=== PATIENT | male | born 1990 | race Caucasian/White ===

== ENCOUNTER → 2019-10-18 08:49 | Outpatient (CLI) | payer MEDICAID, SELFPAY ==
--- NOTE | 2019-10-18 08:58 | CA_ITS ---
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: Jodie Moore RVT Ht: 6 ft 1 in Wt: 235lbs BSA: 2.30 BP: 136/72 mmHg Indications: BHAGAT,FATIGUE,HTZ Echo Enhancing Agent Indication: Rule out Shunt Agent(s) / Amount(s) Used: Agitated Saline 10 cc Comments: PROBABLE + BUBBLE STUDY 2D Dimensions LVOT 2.17 cm (M/F) 1.5-2.5 M-Mode Dimensions RVDd 2.03 cm (0.9-2.6) LVDd 4.39 cm (3.5-5.7) LVDs 1.89 cm (3.5-5.7) IVSd 1.21 cm (0.6-1.1) PWd 0.93 cm (0.6-1.1) EF (Teich) 87.40% FS 56.90% EDV (Teich) 87.20 mL ESV (Teich) 11.00 mL LV Diastology E/A Ratio 1.67 Mitral Valve MV A Velocity 41.00 (40-130 cm/s) Left Ventricle Left atrium is normal size, left ventricle is normal size, there is no concentric left ventricular hypertrophy, visually estimated ejection fraction 55% with no regional wall motion abnormality, diastolic parameters are within normal range. Right Ventricle Right atrium right ventricular normal size and contractility. Atria Intra-atrial septum is intact, the agitated saline contrast study shows presence of agitated contrast in the left ventricle, this is study is inconclusive for intracardiac shunt, if clinically indicated a transesophageal echocardiogram is recommended. Aortic Valve Aortic valve is grossly normal, there is no aortic stenosis aortic insufficiency. Mitral Valve Mitral valve is grossly normal, there is mild mitral regurgitation. Tricuspid Valve Tricuspid valve is grossly normal, there is mild tricuspid regurgitation. Tricuspid regurgitation jet velocity is inadequate for calculation of the right ventricular systolic pressure. Pulmonic Valve Pulmonic valve is poorly visualized. Great Vessels Aortic root is normal size. Pericardium No significant pericardial effusion noted. Conclusion 1. Normal left ventricular size, preserved left ventricular systolic function, visually estimated ejection fraction 55% with no regional wall motion abnormality, diastolic parameters are within normal range. 2. Interatrial septum is intact, there is no obvious flow across the interatrial septum, however agitated saline contrast study shows presence of saline contrast in the left ventricle during the acquisition of this study, this is study is inconclusive for presence of intracardiac shunt, if clinically indicated transesophageal echocardiogram is recommended. 3. No significant pericardial effusion noted. Electronically signed by : Luis Ayon, 10/18/2019 11:20:10
--- NOTE | 2019-10-18 10:02 | ECG_ITS ---
APPROVED REPORT Exam: Resting ECG HR:60 bpm ECG Measurements Heart Rate 60 AXES AR 178 P 29 QRSd 88 QRS 48 QT 404 T 42 QTc 404 <Conclusion> Normal sinus rhythm with sinus arrhythmia Normal ECG Electronically signed by : Ernesto Cárdenas, 10/18/2019 17:54:52
[2019-10-18 10:36] LABS: Basophils # 0.1 K/mm3 (0-0.2); Eosinophils # 0.3 K/mm3 (0.0-0.4); Eosinophils % 5.3 % (0.1-12.0); Hematocrit 42.2 % (42.0-52.0); Lymphocytes # 1.8 K/mm3 (0.7-4.5); Lymphocytes % 29.9 % (10-50); Mean Corpuscular HGB Conc 33.1 g/dL (31.8-35.4); Mean Corpuscular Hemoglobin 31.2 pg (27.0-31.2); Mean Corpuscular Volume 94.1 fl (80-94); Mean Platelet Volume 7.9 fl (7.4-10.4); Monocytes # 0.4 K/mm3 (0.1-1.0); Monocytes % 5.9 % (1.7-9.3); Neutrophils # 3.5 K/mm3 (1.8-7.8); Neutrophils % 57.9 % (37.0-80.0); Platelet Count 252 K/mm3 (142-424); Red Blood Count 4.49 M/mm3 (4.60-6.20); Red Cell Distribution Width 13.2 % (11.5-17.5); White Blood Count 6.1 K/mm3 (4.8-10.8)
[2019-10-18 12:22] LABS: Chloride 99 mmol/L (98-107); Potassium 4.3 mmoL/L (3.5-5.1); Sodium 140 mmol/L (136-145)
[2019-10-18 12:25] LABS: Alanine Aminotransferase 155 U/L (12-78); Albumin Level 4.4 g/dl (3.5-5.0); Albumin/Globulin Ratio 1.5 (1.1-1.8); Alkaline Phosphatase 88 U/L (38-126); Anion Gap 17.3 mEq/L (5-15); Aspartate Amino Transferase 81 U/L (17-59); Bilirubin,Total 0.4 mg/dl (0.2-1.3); Blood Urea Nitrogen 13 mg/dl (9-20); Calcium 9.9 mg/dl (8.4-10.2); Carbon Dioxide 28 mmol/L (22.0-30.0); Estimated Glomerular Filt Rate 115 ml/min (>60); GFR (African American) 139 ML/MIN (>60); Globulin 2.9 g/dL (1.3-3.2); Glucose 106 mg/dl (74-100); Total Protein,Serum 7.3 g/dl (6.3-8.2)
== END ==
PROVIDERS: PCP Internal Medicine; Visit Provider Internal Medicine
DX: R06.09 Other forms of dyspnea (principal); R53.83 Other fatigue
CPT/HCPCS: 80053; 84443; 85025; 93005; 93306

== ENCOUNTER 2019-11-01 12:16 | Day surgery (SDC) | payer MEDICAID, SELFPAY ==
--- NOTE | 2019-11-01 12:24 | CA_ITS ---
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 Type of Sedation : Conscious Sedation Transesophageal probe was inserted and advanced into esophagus without difficulty by Dr. Lex Lopez. The RADHA was performed without complications. Throughout the procedure, the blood pressure, pulse oximetry, cardiac rhythm, and rate were monitored. The patient tolerated the procedure without adverse effects. Recovery from conscious sedation was uneventful and vital signs were stable. Left Ventricle Left ventricle is normal size and function ejection fraction 55% with no regional wall motion abnormalities in the obtained views. Right Ventricle Right ventricle is normal size and contractility. Atria Left atrium is normal size, left atrial appendage free of thrombus. Right atrium is normal size. Intra-atrial septum is intact, there is no flow across the interatrial septum, agitated saline contrast study fails to identify intracardiac shunt. Aortic Valve Aortic valve is structurally normal, there is no aortic stenosis or aortic insufficiency. Mitral Valve Mitral valve is grossly normal, there is trace mitral regurgitation. Tricuspid Valve Tricuspid valve is grossly normal there is no tricuspid regurgitation. Pulmonic Valve Pulmonic valve is grossly normal. Great Vessels Aortic root is normal size, ascending aorta and descending thoracic aorta is normal Pericardium No significant pericardial effusion noted. Conclusion 1. Normal left ventricular size preserved left ventricular systolic function, visually estimated ejection fraction 55% with no regional wall motion abnormality. 2. Intact interatrial septum, there is no flow across the interatrial septum, agitated saline contrast reveals no intracardiac shunt. 3. No significant pericardial effusion noted. Electronically signed by : Luis Ayon, 11/19/2019 09:12:44
[2019-11-01 12:26] VITALS: BMI 30.9
[2019-11-01 12:37] VITALS: BP 167/88; PULSE 90; RESP 18; TEMP 37.1; O2SAT 96
[2019-11-01 12:51] LABS: Basophils # 0.2 K/mm3 (0-0.2); Basophils % 2.6 % (0.1-2.0); Eosinophils # 0.2 K/mm3 (0.0-0.4); Eosinophils % 2.7 % (0.1-12.0); Hematocrit 46.2 % (42.0-52.0); Hemoglobin 15.9 g/dL (14.1-18.0); Lymphocytes # 1.8 K/mm3 (0.7-4.5); Lymphocytes % 25.8 % (10-50); Mean Corpuscular HGB Conc 34.4 g/dL (31.8-35.4); Mean Corpuscular Hemoglobin 31.1 pg (27.0-31.2); Mean Corpuscular Volume 90.4 fl (80-94); Mean Platelet Volume 8.2 fl (7.4-10.4); Monocytes # 0.5 K/mm3 (0.1-1.0); Monocytes % 6.8 % (1.7-9.3); Neutrophils # 4.4 K/mm3 (1.8-7.8); Platelet Count 337 K/mm3 (142-424); Red Cell Distribution Width 13.1 % (11.5-17.5); White Blood Count 7.1 K/mm3 (4.8-10.8)
[2019-11-01 12:53] LABS: Chloride 98 mmol/L (98-107)
[2019-11-01 12:54] LABS: Potassium 3.9 mmoL/L (3.5-5.1); Sodium 140 mmol/L (136-145)
[2019-11-01 12:56] LABS: Blood Urea Nitrogen 10 mg/dl (9-20); Creatinine Clearance Estimated 182 mL/min (50-200); Estimated Glomerular Filt Rate 100 ml/min (>60); GFR (African American) 121 ML/MIN (>60)
[2019-11-01 12:57] LABS: Anion Gap 17.9 mEq/L (5-15); Calcium 10.3 mg/dl (8.4-10.2); Carbon Dioxide 28 mmol/L (22.0-30.0); Glucose 107 mg/dl (74-100)
[2019-11-01 13:00] VITALS: BP 147/93; PULSE 90; RESP 18; O2SAT 94
[2019-11-01 13:15] VITALS: BP 121/80; PULSE 101; RESP 18; O2SAT 93
[2019-11-01 13:20] VITALS: BP 121/66; PULSE 87; RESP 16; O2SAT 97
[2019-11-01 13:45] VITALS: BP 133/83; PULSE 71; RESP 18; O2SAT 99
[2019-11-01 14:00] VITALS: BP 151/91; PULSE 75; RESP 18; O2SAT 95
--- NOTE | 2019-11-01 14:13 | HMH.ANESCL ---
[facility] Anesthesia Checklist - Structural Data Admitted From: Home Planned Operative Procedure/s: leo Consent for Planned Operative Procedure(s) Verified: Yes - Airway Assessment C-Spine Mobility Assessed: Yes TMJ Mobility Assessed: Yes Dentition: Good Dentition - Neurological Assessment Level of Consciousness: Awake, Alert, Appropriate - Anesthesia Plan Anesthesia Risk discussed: Yes Anesthesia Plan: Verified ASA Class: III Anesthesia Type: MAC [facility] History I have reviewed the patient's past medical history: Yes Medical History: Reports:: Hypertension, Palpitations Denies:: Cancer, Diabetes Mellitus Type 1, Diabetes Mellitus Type 2, Internal Pacemaker, MRSA, Seizures *Have you ever received a pneumonia vaccine?: No *Have you received a flu vaccine this season?: No Anesthesia experience/problems:: none Other Surgeries: Yes: No Previous Surgery. No: Pacemaker Amputation: No Fractures: No - *Social History Educational Level: Completed GED/General Educational Development Smoking Status: Never smoker Alcohol Intake: current Alcohol Intake Frequency:: holidays/special occasions only Substance Use Type: denies use *Occupational Status:: employed Housing: house *Travel in the last 8 weeks: None Family Hx:: Coronary Artery Disease, Other
== END 2019-11-01 14:23 | disposition home or self-care (01) ==
PROVIDERS: PCP Internal Medicine; Visit Provider Internal Medicine Cardiovascular Disease
DX: R93.1 Abnormal findings on diagnostic imaging of heart and coronary circulation (principal); R00.2 Palpitations; R94.31 Abnormal electrocardiogram [ECG] [EKG]; Z82.49 Family history of ischemic heart disease and other diseases of the circulatory system
CPT/HCPCS: 80048; 85025; 93312; G0399

== ENCOUNTER 2024-06-10 14:26 | Emergency (ER) | payer OTHER, SELFPAY ==
--- NOTE | 2024-06-10 14:28 | ECG_ITS ---
APPROVED REPORT Exam: Resting ECG HR:84 bpm ECG Measurements Heart Rate 84 AXES IA 178 P 41 QRSd 88 QRS 67 QT 346 T 7 QTc 387 Conclusion SINUS RHYTHM NONSPECIFIC T-WAVE ABNORMALITY BORDERLINE ECG UNCONFIRMED REPORT Electronically signed by : ALETA BAKER, 06/11/2024 06:43:23
[2024-06-10 14:35] VITALS: BP 184/106; PULSE 78; RESP 18; TEMP 37; O2SAT 100; BMI 38.0
--- NOTE | 2024-06-10 14:39 | XR_ITS ---
PROCEDURE INFORMATION: Exam: XR Chest Exam date and time: 06/10/2024 2:40 PM Age: 33 years old Clinical indication: Pain; Chest pressure; Additional info: Cp TECHNIQUE: Imaging protocol: Radiologic exam of the chest. Views: 1 view. COMPARISON: No relevant prior studies available. FINDINGS: Lungs: Unremarkable. No consolidation. Pleural spaces: Unremarkable. No pleural effusion. No pneumothorax. Heart/Mediastinum: Unremarkable. No cardiomegaly. Bones/joints: Unremarkable. IMPRESSION: No acute findings.
[2024-06-10] MEDS: ASPIRIN 325MG TABLET 325 MG PO (14:48)
[2024-06-10 14:52] LABS: Basophils # 0.1 K/mm3 (0-0.2); Basophils % 1.2 % (0.1-2.0); Eosinophils # 0.4 K/mm3 (0.0-0.4); Eosinophils % 4.9 % (0.1-12.0); Hematocrit 44.4 % (42.0-52.0); Hemoglobin 15.5 g/dL (14.1-18.0); Lymphocytes % 27.5 % (10-50); Mean Corpuscular Hemoglobin 32.9 pg (27.0-31.2); Mean Corpuscular Volume 93.9 fl (80-94); Mean Platelet Volume 7.7 fl (7.4-10.4); Monocytes # 0.5 K/mm3 (0.1-1.0); Monocytes % 6.1 % (1.7-9.3); Neutrophils # 4.4 K/mm3 (1.8-7.8); Neutrophils % 60.2 % (37.0-80.0); Platelet Count 268 K/mm3 (142-424); Red Blood Count 4.73 M/mm3 (4.60-6.20); Red Cell Distribution Width 13.3 % (11.5-17.5); White Blood Count 7.4 K/mm3 (4.8-10.8)
[2024-06-10 15:00] VITALS: BP 165/96; PULSE 81; RESP 15; O2SAT 98
[2024-06-10 15:11] LABS: Albumin Level 4.6 g/dl (3.5-5.0); Chloride 105 mmol/L (98-107); Potassium 3.8 mmoL/L (3.5-5.1); Sodium 139 mmol/L (136-145)
[2024-06-10 15:14] LABS: Alanine Aminotransferase 84 U/L (12-78); Albumin/Globulin Ratio 1.3 (1.1-1.8); Alkaline Phosphatase 103 U/L (38-126); Anion Gap 12.8 mEq/L (5-15); Aspartate Amino Transferase 91 U/L (17-59); Bilirubin,Total 0.7 mg/dl (0.2-1.3); Blood Urea Nitrogen 13 mg/dl (9-20); Carbon Dioxide 25 mmol/L (22.0-30.0); Creatine Kinase 138 U/L (55-170); Creatinine Clearance Estimated 210 mL/min (50-200); Estimated Glomerular Filt Rate 97 ml/min (>60); GFR (African American) 118 ML/MIN (>60); Globulin 3.6 g/dL (1.3-3.2); Total Protein,Serum 8.2 g/dl (6.3-8.2)
[2024-06-10 15:15] LABS: Calcium 9.7 mg/dl (8.4-10.2); Glucose 106 mg/dl (74-100)
[2024-06-10 15:31] VITALS: BP 148/85; PULSE 80; RESP 18; O2SAT 97
--- NOTE | 2024-06-10 15:46 | ED_ITS ---
Discharge Plan Disposition Patient Disposition: Home, Self-Care Chief Complaint: Shortness of Breath/Dyspnea Prescriptions Prescriptions: No Action Bystolic 5 mg tablet 0.5 mg PO DAILY losartan-hydrochlorothiazide 50-12.5 mg tablet 1 tab PO DAILY Qty: 30 5RF Referrals Follow up/Referrals: Eusebia Contreras APRN [Primary Care Provider] - See instructions Froy Arriaga MD [Staff Physician] - See instructions Activity Restrictions/Add. Instructions Additional Instructions/Restrictions: Call your family doctor to establish care for this visit to the emergency department and schedule follow-up within 48 hours to ensure improvement. If you have any worsening of your condition or any other concerning signs or symptoms, return to the emergency department or your primary care doctor for further evaluation. Call cardiology to be followed up about your resistant hypertension and also talk to cardiology as well as your family doctor about scheduling a formal sleep study to diagnose underlying sleeping disorder, likely MINGO (obstructive sleep apnea) Clinical Impressions Clinical Impression: Hypertension, Shortness of breath Print Language Print Language: Georgian Discharge ED Provider: Satish Perales HPI General Chief Complaint: Shortness of Breath/Dyspnea Stated Complaint: Chest Pain Time Seen by Provider: 06/10/24 14:39 Mode of Arrival: Ambulatory Source of Information: Patient Limitations: No Limitations Description of Symptoms (Recalled from ER Triage Doc. by RN): pt c/o SOA, fatigue and numbness that starts in his L should and radiates distal. pt states last night he had a little bit of chest pain but it has since resolved. History of Present Illness HPI narrative: Please note that above description of symptoms, in this electronic medical record under categorization of recalled from ER triage doctor by RN are reflective of an initial nursing assessment, however, is not reflective of my full history and physical exam that was personally taken and clarified. Consequentially, this preceding description of symptoms, which may include the patient's categorized chief complaint in the EMR, do not reflect my personal clinical impression, and the ultimate description of history of present illness and patient stated complaints should be deferred to this section of the note. Unless stated otherwise or congruent with this section of the note, additional signs, symptoms, or incongruence should be interpreted as inaccurate with my clinical impression. Related Data Home Medications ?Medication ?Instructions ?Recorded ?Confirmed nebivolol 5 mg tablet (Bystolic) 0.5 mg PO DAILY 10/25/19 10/25/19 Previous Rx's ?Medication ?Instructions ?Recorded losartan 50 mg-hydrochlorothiazide 1 tab PO DAILY #30 tabs 10/25/19 12.5 mg tablet Allergies Allergy/AdvReac Type Severity Reaction Status Date / Time No Known Allergies Allergy Verified 10/25/19 10:31 [facility] Disclaimer: The information contained in this section may have been updated after the patient was seen, as this information can be updated by other users. Medical History (Updated 06/10/24 @ 17:24 by Satish Perales MD) Weight gain Abnormal echocardiogram Edema MINGO (obstructive sleep apnea) Restless sleeper Daytime somnolence Family history of heart disease Palpitations Dyspnea Abnormal EKG Social History Smoking Status: Never smoker alcohol intake: current alcohol intake frequency: holidays/special occasions only substance use type: denies use current occupational status: employed Travel in the last 8 weeks: None housing: house current occupational exposures/hazards: Yes caffeine: Yes Other Medical History Have you received the Flu Vaccine for this season: No Have you received the Pneumonia Vaccine: No ROS Obtained: Yes All systems reviewed & no additional complaints except as documented Physical Exam General General appearance: alert Neck Neck exam: Present trachea midline Chest Chest inspection: Present normal inspection and symmetric chest wall rise Respiratory Respiratory exam: Present normal lung sounds bilaterally; Absent respiratory distress, wheezes, stridor, accessory muscle use or prolonged expiratory phase Cardiovascular Cardiovascular exam: Present regular rate, normal rhythm and other (Pulses equal and symmetric in upper and lower extremities) Extremities Exam Extremities exam: Absent edema Neurological Exam Neurological exam: Present alert, oriented X3 and CN II-XII intact Skin Skin exam: Present warm and dry; Absent cyanosis, diaphoresis or pallor HEART Score HEART Score HEART Score assessment performed?: Yes HEART Score: 0 Critical Care Critical Care Time Critical Care Time: No Medical Decision Making Medical Records Medical records reviewed: Yes I reviewed the patient's medical records. Asad Inquiry Pt receiving controlled substance: No Asad was queried for this patient: No Vital Signs Vital Signs: 06/10/24 14:35 06/10/24 15:00 06/10/24 15:31 Temperature 98.6 F Temperature Source Oral Pulse Rate 81 80 Pulse Rate [Left] 78 Respiratory Rate 18 15 18 Blood Pressure 165/96 H 148/85 H Blood Pressure [Right Arm] 184/106 H Blood Pressure Mean 106 Blood Pressure Mean [Right Arm] 132 Blood Pressure Source [Right Arm] Automatic Cuff Blood Pressure Position [Right Arm] Sitting 02 Sat by Pulse Oximetry 100 98 97 Oxygen Delivery Method Room Air Room Air 06/10/24 16:00 Temperature Temperature Source Pulse Rate 73 Pulse Rate [Left] Respiratory Rate 16 Blood Pressure 154/96 H Blood Pressure [Right Arm] Blood Pressure Mean 115 Blood Pressure Mean [Right Arm] Blood Pressure Source [Right Arm] Blood Pressure Position [Right Arm] 02 Sat by Pulse Oximetry 96 Oxygen Delivery Method Lab Data Labs: Lab Results 06/10/24 14:40: WBC 7.4, RBC 4.73, Hgb 15.5, Hct 44.4, MCV 93.9, MCH 32.9 H, MCHC 35.0, RDW 13.3, Plt Count 268, MPV 7.7, Neut % (Auto) 60.2, Lymph % (Auto) 27.5, Rabun % (Auto) 6.1, Eos % (Auto) 4.9, Baso % (Auto) 1.2, Neut # (Auto) 4.4, Lymph # (Auto) 2.0, Rabun # (Auto) 0.5, Eos # (Auto) 0.4, Baso # (Auto) 0.1, PT 10.2, INR 0.90, D-Dimer 0.60 H, Sodium 139, Potassium 3.8, Chloride 105, Carbon Dioxide 25, Anion Gap 12.8, BUN 13, Creatinine 0.90, Estimated Creat Clear 210, Estimated GFR 97, Est GFR ( Amer) 118, Glucose 106 H, Calcium 9.7, Magnesium 2.2, Total Bilirubin 0.7, AST 91 H, ALT 84 H, Alkaline Phosphatase 103, Total Creatine Kinase 138, Troponin I < 0.01, NT-Pro-B Natriuret Pep < 20.0, Total Protein 8.2, Albumin 4.6, Globulin 3.6 H, Albumin/Globulin Ratio 1.3, HIV 1&2 Antibody Rapid Nonreactive 06/10/24 14:40 06/10/24 14:40 Response Orders (Tests/Meds): ED MEDICATIONS Generic Name Dose Route Start Last Admin Trade Name Freq PRN Reason Stop Dose Admin Sodium Chloride 10 ml 06/10/24 14:49 Sodium Chloride 0.9% 10ml Flush Syringe IV 07/10/24 14:48 NEEDED PRN Maintain IV Site Discontinued Medications Generic Name Dose Route Start Last Admin Trade Name Padmini PRN Reason Stop Dose Admin Aspirin 325 mg 06/10/24 14:40 06/10/24 14:48 Aspirin 325mg Tablet PO 06/10/24 14:41 325 mg ONCE ONE Administration ORDERS Category Date Time Status XR chest portable Stat Exams 06/10/24 14:39 Completed CK [Creatine Kinase] Stat Lab 06/10/24 14:40 Completed Complete Blood Count Auto Diff Stat Lab 06/10/24 14:40 Completed Comprehensive Metabolic Panel Stat Lab 06/10/24 14:40 Completed D-Dimer Stat Lab 06/10/24 14:40 Completed HIV (1&2) Antibody Rapid Stat Lab 06/10/24 14:40 Completed Hep C Ab with Reflex to RNA Stat Lab 06/10/24 14:40 Received Magnesium Stat Lab 06/10/24 14:40 Completed NT Pro Brain Natriuretic Pep. Stat Lab 06/10/24 14:40 Completed PT INR [Prothrombin Time INR] Stat Lab 06/10/24 14:40 Completed Troponin I Q3H Lab 06/10/24 17:45 Ordered Troponin I Q3H Lab 06/10/24 20:45 Ordered Troponin I Stat Lab 06/10/24 14:40 Completed MDM Narrative Medical Decision Narrative: 33-year-old male history of obesity, daytime sleepiness presenting with shortness of breath and left upper extremity tingling. States that he started having left upper extremity tingling at work just prior to arrival. Associated shortness of breath. No chest pain, nausea, vomiting, diaphoresis, syncope, or any other concerns. Has not gone away, so came in for further evaluation. History was obtained via conversation with patient. On arrival, patient hemodynamically stable, alert, oriented x4, appropriate, GCS 15, moving all extremities spontaneously, pupils equal and reactive to light. Full physical exam performed and significant for well-appearing male no acute distress. He is obese. Cardiac exam within normal limits lungs are clear bilaterally. Cardiac exam with normal S1-S2, no murmurs gallops rubs. No evidence of JVD. No lower extremity edema. Pulses equal and symmetric in upper and lower extremities. Neurovascular intact in upper and lower extremities. Differential includes hypertensive heart disease, pulmonary hypertension, anxiety, ACS, [place], new CHF, sleep apnea, among others. Patient placed on continuous cardiac monitoring and continuous pulse ox with initial blood pressure 184/106, heart rate 78, saturation 100% on room air. Independent interpretation of EKG shows nonischemic pattern. Sinus rhythm 84 bpm. WV 178, QRS 88, QTc 387. Normal axis. Workup independently interpreted and significant for nonactionable CBC. CMP with nonactionable findings. AST and ALT mildly elevated, likely secondary to fatty liver infiltration. Troponin negative, BNP negative. D-dimer mildly elevated at 0.6, but negative by years criteria. On independent interpretation of imaging, no acute cardiopulmonary airspace disease. Borderline cardiomegaly. See radiology read for full review of final results. Heart score 0. On further conversation, patient states that he has been having difficulty sleeping recently because he has been snoring so much. Patient states that even when he is awake, he will be laying down on the couch or in a chair, having difficulty taking deep breaths while even awake. States that he has also been following with his family doctor, on multiple blood pressure medications at the age of 33 for resistant hypertension. Because of this, excessive daytime somnolence, shortness of breath, I feel this is most claims representative of early pulmonary hypertension with early hypertensive heart disease. This was relayed to patient and he was recommended that he follow-up with cardiology as well as pulmonology. Patient voiced his understanding. On reevaluation, prior to labs having resulted, patient states that he is ready to go, feeling better. Because patient at baseline without signs or symptoms of clinical decompensation, deemed appropriate for discharge. Results were relayed to patient who voiced understanding and were agreeable to outpatient management and follow up. I discussed my clinical impression with patient and answered all questions. At this time, the evidence for any other entities in the differential is insufficient to warrant any further testing or ED observation. This was explained as well. Advisory was given that persistent or worsening symptoms require further evaluation. I confirmed the understanding of this discussion. Psychiatry Resident disclaimer Much of this encounter note is an electronic anvil seating press operator spoken language to printed text. Electronic anvil seating press operator of the spoken language may permit errors. Although I have reviewed the note, some errors may still exist.
[2024-06-10 15:53] LABS: Magnesium 2.2 mg/dl (1.6-2.3)
[2024-06-10 16:00] VITALS: BP 154/96; PULSE 73; RESP 16; O2SAT 96
[2024-06-10 16:04] LABS: NT Pro Brain Natriuretic Pep. < 20.0 pg/mL (0-125)
[2024-06-10 16:09] LABS: HIV (1&2) Antibody Rapid NONREACTIVE (NONREACTIVE)
[2024-06-10 16:10] LABS: Troponin I < 0.01 ng/ml (0.00-0.034)
[2024-06-10 16:15] VITALS: BP 154/96; PULSE 75; RESP 17; O2SAT 97
[2024-06-10 16:19] LABS: Prothrombin Time 10.2 seconds (10.1-12.5)
[2024-06-10 17:30] VITALS: BP 150/92; PULSE 73; RESP 18; TEMP 36.9; O2SAT 98
[2024-06-11 09:16] LABS: HCV Ab Non Reactive (Non Reactive)
--- OUTSIDE RECORDS SUMMARY | 2024-06-11 22:22 | XMS_ITS | Continuity of Care Document ---
Author Organization Vijaya Brantley [facility] Address [address] [place] [address] Assessment No assessment recorded. Plan of Treatment Reminders Order Date Submit Date Provider Last Modified By Organization Details Last Modified Time Details Appointments ULTRASOUN D 30 2023 08:30A M [facility] Not available Not available Not available Lab None recorded. Referral None recorded. Procedures None recorded. Surgeries None recorded. Imaging XR, chest, 2 view 2023 [facility], [address] [place] [address] , [place], [address], 04/18/2024 17:56:42 Medication Orders albuterol sulfate HFA 90 mcg/actua tion aerosol inhaler 2023 024 [facility], [address] [place] [address], [address], 03/28/2024 11:57:30 azithromy nils 250 mg tablet 2023 024 [facility], [address] [place] [address], [address], 05/22/2024 17:24:41 semagluti de (weight loss) 0.25 mg/0.5 mL subcutane ous pen injector 2023 024 [facility], [address] [place] [address], [address], 05/22/2024 17:24:38 Patient TargetsNo targets recorded. Patient Instructions Encounter Date Encounter Id Patient Instructions Last Modified By Organization Details Last Modified Time 03/28/2024 [id number] learning about healthy weight Not available 03/28/2024 18:49:47 body mass index: care instructions Not available 03/28/2024 18:49:47 learning about healthy weight [email or web address] Not available 03/28/2024 18:49:47 body mass index: care instructions Not available 03/28/2024 18:49:47 cough: care instructions [email or web address] Not available 03/28/2024 11:57:27 All questions answered and pt/guardian satisfied with treatment plan. Call with changes RTC or ED if symptoms change or worsen Keep next interval checkup Cont. chronic meds as prescribed Chronic conditions are stable Discussed natural and expected course of this diagnosis and need to alert the office if symptoms do not follow expected course or if any worsens [email or web address] Not available 03/28/2024 18:50:17 Reason for Referral None Reported. Results Created Date Observation Date Name Description Value Unit Range Abnormal Flag Note LastModifiedBy Organization Detail LastModifiedTime 06/10/20 24 06/10/2024 XR, chest , 2 view No observ ation record ed. [address], [place], [address], 06/10/2024 16:55:48 06/11/20 24 06/10/2024 imagi ng/di agnos tic resul t No observ ation record ed. [address], [place], [address], 06/11/2024 16:26:22 Result Notes None recorded. Problems Name Problem SNOMED Code Status Onset Date Resolution Date Notes Provider Name and Address Organization Details Recorded Time Shre luis 33809535 Active 2020 Y[place]JA[place] - [facility] 16:33:28 Suspecte d COVID-19 435864365 Completed 11/04/2020 Removal Reason: Problem added by user [email or web address] from the COVID-19 watch flag Tonya Ch null, [place] - [facility] 1 11:13:30 Fatigue 69331124 Active 2022 Eusebiasena Contreras, [employer] [address], [place], [address] , [place] - [facility] 3 08:28:23 Vitamin D deficien cy 20613294 Active 2022 Eusebia Ben, [employer] [address], [place], [address] , [place] - [facility] 3 11:08:40 Influenz a caused by Influenz a A virus 708070718 Active 2023 Jam Rand PA-C [address], [place], [address] , [place] - [facility] 4 15:14:26 Prediabe lucas 232798678 Active 2023 Antonio Waddell, DO [address], [place], [address] , [place] - [facility] 4 14:21:09 Mixed hyperlip idemia 910213826 Active 2023 Antonio Waddell, DO [address], [place], [address] , [place] - [facility] 4 14:21:22 Liver enzymes level above referenc e range 026071775 Active 2023 Antonio Waddell, DO [address], [place], [address] , [place] [facility] 4 14:22:05 Depressi ve disorder 26467737 Active 2023 Antonio Waddell, DO [address], [place], [address] , [place] [facility] 4 13:31:29 Nausea and vomiting 96816064 Active 2023 Jam Rand PA-C [address], [place], [address] , [place] [facility] 4 16:20:50 Cough 48028861 Active 2023 Jam Rand PA-C [address], [place], [address] , [place] - [facility] 4 11:56:40 Atypical pneumoni a 357690391 Active 2023 Jam Rand PA-C [address], [place], [address] , [facility] - [facility] 4 11:57:42 Obesity 262975569 Active 2023 Jam Rand PA-C [address], [place], [address] , [facility] - [facility] 4 18:48:32 Viral gastroen teritis 909988415 Active 2023 Jam Rand PA-C [address], [place], [address] , [facility] - [facility] 4 17:57:16 Problem Notes None recorded. Procedures Surgical History Date Name Laterality Status Provider Name and Address Organization Details Recorded Time 3 Knee Surgery completed Joy Merlos [facility] 01/31/2024 15:46:12 Knee Surgery completed Delaney [facility] 11/17/2023 13:13:56 procedure on skin completed Delaney [place] - [facility] 11/17/2023 13:14:33 Imaging Results None recorded. Procedure Notes None recorded. Medical Equipment None Reported. Allergies No known drug allergies Medications Name Sig Start Date Stop Date Status Note LastModified by Organization Details LastModified Time losartan 50 mg tablet TAKE 1 TABLET BY MOUTH EVERY DAY 11/08 completed Not Available Not Available Not Available cyclobenz aprine 10 mg tablet TAKE ONE (1) TABLET BY MOUTH THREE TIMES A DAY NEEDED 05/24 completed Not Available Not Available Not Available carvedilo l 6.25 mg tablet TAKE 1 TABLET BY MOUTH TWICE DAILY 09/05 completed Not Available Not Available Not Available azithromy nils 250 mg tablet TAKE TWO (2) TABLETS BY ORAL ROUTE ONCE DAILY FOR ONE (1) DAY THEN ONE (1) TABLET BY ORAL ROUTE ONCE DAILY FOR FOUR (4) DAYS 05/22 completed Not Available Not Available Not Available metoprolo l succinate ER 50 mg tablet,ex tended release 24 hr TAKE ONE (1) TABLET EVERY DAY BY ORAL ROUTE FOR 30 DAYS. active Not Available Not Available No t Available prednison e 20 mg tablet TAKE ONE (1) TABLET TWICE A DAY BY ORAL ROUTE FOR FIVE (5) DAYS. 09/24 completed Not Available Not Available Not Available phentermi ne 37.5 mg tablet TAKE ONE (1) TABLET EVERY DAY BY ORAL ROUTE FOR 30 DAYS. 02/09 completed Not Available Not Available Not Available amlodipin e 5 mg tablet TAKE ONE (1) TABLET BY MOUTH EVERY DAY 09/05 completed Not Available Not Available Not Available ondansetr on 8 mg disintegr ating tablet Place 1 tablet twice a day by translin gual route as needed. active Not Available Not Available No t Available oseltamiv ir 75 mg capsule TAKE ONE (1) CAPSULE TWICE A DAY BY ORAL ROUTE FOR FIVE (5) DAYS. 09/24 completed Not Available Not Available Not Available lisinopri l 10 mg tablet TAKE ONE (1) TABLET EVERY DAY BY ORAL ROUTE FOR 30 DAYS. active Not Available Not Available No t Available metoprolo l succinate ER 25 mg tablet,ex tended release 24 hr TAKE ONE (1) TABLET EVERY DAY BY ORAL ROUTE. active Not Available Not Available No t Available ergocalci ferol (vitamin D2) 1,250 mcg (50,000 unit) capsule TAKE ONE (1) CAPSULE EVERY WEEK BY ORAL ROUTE FOR 90 DAYS. active Not Available Not Available No t Available Anusol-HC 25 mg rectal supposito ry insert 1 supposit ory (25 mg) by rectal route 2 times per day for 2 weeks 06/08 completed Anusol-H C 25 mg rectal supposit ory;Darian rded Status: Recorded on: 03/18/20 14 8:31PM;D iscontin ued Status: Disconti nued on: 06/08/20 15 5:47PM;U ser: [email or web address]; Est. Completi on: 04/01/20 14 Not Available Not Available Not Available methylpre dnisolone 4 mg tablets in a dose pack FOLLOW PACKAGE DIRECTIO NS 05/24 completed Not Available Not Available Not Available albuterol sulfate HFA 90 mcg/actua tion aerosol inhaler INHALE TWO (2) PUFFS EVERY FOUR (4) HOURS BY INHALATI ON ROUTE NEEDED. active Not Available Not Available No t Available losartan 50 mg-hydroc hlorothia zide 12.5 mg tablet 11/06 completed Not Available Not Available Not Available brompheni ramine-ps eudoephed rine-DM 2 mg-30 mg-10 mg/5 mL oral syrup TAKE 10 ML EVERY FOUR (4) HOURS BY ORAL ROUTE NEEDED, FOR COUGH. 09/24 completed Not Available Not Available Not Available ondansetr on 4 mg disintegr ating tablet PLACE ONE (1) TABLET ON TOP OF TONGUE WHERE IT WILL DISSOLVE TWICE DAILY NEEDED active Not Available Not Available No t Available losartan 100 mg tablet TAKE ONE (1) TABLET BY MOUTH EVERY DAY 09/05 completed Not Available Not Available Not Available oxycodone 5 mg tablet TAKE ONE (1) TO TWO (2) TABLETS BY MOUTH EVERY FOUR (4) HOURS NEEDED FOR MAJOR SURGERY/ TRAUMA. 09/24 completed Not Available Not Available Not Available escitalop kiana 10 mg tablet TAKE ONE (1) TABLET EVERY DAY BY ORAL ROUTE FOR 30 DAYS. 12/14 completed Not Available Not Available Not Available escitalop kiana 5 mg tablet Take 1 tablet every day by oral route. active Not Available Not Available No t Available Voltaren one bid 06/08 completed voltaren 75 mg.;Darian rded Status: Recorded on: 01/20/20 15 1:59PM;D iscontin ued Status: Disconti nued on: 06/08/20 15 5:47PM;U ser: [email or web address]; Est. Completi on: 02/09/20 15 Not Available Not Available Not Available Contrave 8 mg-90 mg tablet,ex tended release Take 2 tablets twice a day by oral route for 30 days. 09/24 completed Not Available Not Available Not Available Qelbree 100 mg capsule,e xtended release 12/27 completed Not Available Not Available Not Available semagluti de (weight loss) 0.25 mg/0.5 mL subcutane ous pen injector Inject 0.25 mg every week by subcutan eous route for 28 days. 05/22 completed Not Available Not Available Not Available Vitals Date Recorded Body height Body mass index (BMI) Body weight Heart rate Oxygen saturation Oxygen saturation in Arterial blood by Pulse oximetry Systolic blood pressure Diastolic blood pressure Provider Name and Address Organization Details Last Updated DateTime 4 182.88 cm 34.3 kg/m2 965927. 87 g 88 /min 98 % 98 % 130 mm[Hg] 88 mm[Hg] Joy Merlos [place] - [facility] 4 11:28:05 Social History Question Answer Notes LastModified by Organizat ion Details LastModified Time Tobacco Smoking Status Never Smoker Jodie horvath [place] - [facility] 07/20/2020 16:33:41 What Is Your Level Of Alcohol Consumption? Occasional Information not available 05/24/2021 How Many Times Per Week Do You Consume Alcohol? 1-2 Times Per Week Information not available 11/22/2023 What Is Your Level Of Caffeine Consumption? Moderate Information not available 05/24/2021 How Much Tobacco Do You Chew? 1/day [email or web address] Information not available 11/22/2023 Do You Or Have You Ever Used E-cigarettes Or Vape? Never Used Electronic Cigarettes Information not available 10/16/2020 What Was The Date Of Your Most Recent Tobacco Screening? 12/15/2023 [email or web address] Information not available 12/15/2023 What Is Your Relationship Status? Single Information not available 02/23/2023 Are You Sexually Active? No Information not available 02/23/2023 Do You Or Have You Ever Used Smokeless Tobacco? Currently Chews Tobacco Information not available 10/16/2020 How Much Tobacco Do You Smoke? No Information not available 10/16/2020 Do You Use Any Illicit Or Recreational Drugs? No Information not available 05/24/2021 Has Tobacco Cessation Counseling Been Provided? Yes Information not available 05/24/2021 On What Date Was Tobacco Cessation Counseling Provided? 11/22/2023 Not A Smoker Information not available 11/22/2023 How Many Years Have You Smoked Tobacco? 0 Information not available 10/16/2020 Do You Or Have You Ever Used Any Other Forms Of Tobacco Or Nicotine? No Information not available 05/24/2021 Sex: Male Functional Status None recorded. Mental Status None recorded. Family History Relationship Description Onset Age of this Age Resolved Age Notes LastModified by Organization Details LastModified Time Unspecified Relation Heart disease [email or web address] Not available 2023 15:46:11 Medical History Condition Response Hypertension Y Immunizations Vaccine Type Date Status Provider Name and Address Organization Details Recorded Time Influenza, split virus, quadrivalent, preservative 07/07/2022 cancelled Eusebia Contreras, [employer] [address], [place], [address], [place] - [facility] 07/07/2022 15:36:08 Influenza, split virus, quadrivalent, preservative 09/19/2022 cancelled Eusebia Contreras, [employer] [address], [place], [address], [place] - [facility] 09/19/2022 09:23:05 Hep B, adolescent or pediatric 04/05/2001 completed Crystal Muna null, [place] - [facility] 07/07/2022 15:27:57 Hep B, adolescent or pediatric 05/30/2001 completed Crystal Muna [place], [place] - [facility] 07/07/2022 15:27:57 Hep B, adolescent or pediatric 11/02/2001 completed Crystal Muna null, [place] - [facility] 07/07/2022 15:27:57 Past Encounters Encounter ID Performer Location Encounter Start Date Encounter Closed Date Diagnosis/Indication Diagnosis SNOMED-CT Code Diagnosis ICD10 Code [id number] Jam Rand PA-C [address] [address] 03/28/2024 11:17:20 03/28/2024 11:18:51 Cough 93381508 R05.9 Atypical pneumonia 55374 6009 J18.9 Body mass index 30+ - obesity 054483427 Z68.34 Obesity 607759636 E66.9 Health Concerns Section Related Observation LastModified by Organization Detai ls LastModified Time None Recorded Concern Status LastModified by Organization Details LastModified Time None Recorded Payers Encounter Date Sequence Insurance Name Policy Number Policy Scott Covered Member ID Scott Member ID Guarantor Name 03/28/2024 1 [facility] Noel Russo [id number] Noel Russo Notes Date Note Type Note Provider Name and Address Organization Details Recorded Time 03/28/2024 text/html Patient presents to office with complaints of continuous cough. Patient reports cough has been on going x several months . Patient states feels as though something is stuck in throat at all times. Cough is mostly dry. Reports was present before initiating lisinopril. Coughing is worse when pt is active or hot. Patient denies nausea or vomiting. Patient denies chest pain or shortness of air. Endorses occasional GERD. Reports has been ordering semaglutide offline for weight loss.Pt denies chest pain, difficulty eating or drinking, changes in bathroom habits, syncope/presyncope , or any other concerns. Jam Rand PA-C [facility] [address], [place], [address], [place] - [facility] 03/28/2024 18:50:24
--- OUTSIDE RECORDS SUMMARY | 2024-06-11 22:22 | XMS_ITS | Data Portability ---
Author Organization [facility] Address [address] [place] [address] Assessment No assessment recorded. Plan of Treatment Reminders Order Date Submit Date Provider Last Modified By Organization Details Last Modified Time Details Appointments ULTRASOUN D 30 2023 08:30A M U/S Mfhc Not available Not available Not available Lab glucose, fingersti ck, blood [id number], [address] [place], [address], 11/22/2023 08:21:32 rapid SARS CoV + SARS CoV 2 Ag, QL IA, respirato ry specimen [address], [address] [place], [address], 01/31/2024 16:50:17 rapid strep group A, throat [address], [address] [place], [address], 01/31/2024 16:50:17 rapid SARS CoV + SARS CoV 2 Ag, QL IA, respirato ry specimen 2023 024 [facility], [address] [place], [address], 05/22/2024 18:17:11 rapid strep group A, throat 2023 024 [facility], [address] [place] [address] Rd., [place], [address], 05/22/2024 18:17:02 rapid flu (A+B) 2023 024 [facility], [address] [place] [address] Rd., [place], [address], 05/22/2024 18:16:51 Referral None recorded. Procedures None recorded. Surgeries None recorded. Imaging XR, chest, 2 view 2023 [email or web address] [facility], [address] [place] [address] , [place], [address], 04/18/2024 17:56:42 Medication Orders ondansetr on 4 mg disintegr ating tablet 2023 024 [facility], [address] [place] [address], [address], 01/31/2024 16:20:47 albuterol sulfate HFA 90 mcg/actua tion aerosol inhaler [address], [place], [address], 03/28/2024 11:57:30 azithromy nils 250 mg tablet [address], [address], 05/22/2024 17:24:41 semagluti de (weight loss) 0.25 mg/0.5 mL subcutane ous pen injector 2023 024 [facility], [address] [place] [address], [address], 05/22/2024 17:24:38 ondansetr on 8 mg disintegr ating tablet 2023 024 [facility], [address] [place] [address], [place], [address], 05/22/2024 17:57:36 Patient TargetsNo targets recorded. Patient Instructions Encounter Date Encounter Id Patient Instructions Last Modified By Organization Details Last Modified Time 12/15/2023 [id number] learning about healthy weight Not available 12/15/2023 14:14:26 body mass index: care instructions Not available 12/15/2023 14:14:26 01/31/2024 [id number] nausea and vomiting: care instructions [email or web address] Not available 01/31/2024 16:50:17 All questions answered and pt/guardian satisfied with treatment plan. Call with changes RTC or ED if symptoms change or worsen Keep next interval checkup Cont. chronic meds as prescribed Chronic conditions are stable Discussed natural and expected course of this diagnosis and need to alert the office if symptoms do not follow expected course or if any worsens [email or web address] Not available 01/31/2024 18:14:58 03/28/2024 [id number] learning about healthy weight [email or web address] Not available 03/28/2024 18:49:47 body mass index: care instructions Not available 03/28/2024 18:49:47 learning about healthy weight [email or web address] Not available 03/28/2024 18:49:47 body mass index: care instructions [email or web address] Not available 03/28/2024 18:49:47 cough: care instructions [email or web address] Not available 03/28/2024 11:57:27 All questions answered and pt/guardian satisfied with treatment plan. Call with changes RTC or ED if symptoms change or worsen Keep next interval checkup Cont. chronic meds as prescribed Chronic conditions are stable Discussed natural and expected course of this diagnosis and need to alert the office if symptoms do not follow expected course or if any worsens [email or web address] Not available 03/28/2024 18:50:17 05/22/2024 [id number] nausea and vomiting: care instructions [email or web address] Not available 05/22/2024 17:57:50 All questions answered and pt/guardian satisfied with treatment plan. Call with changes RTC or ED if symptoms change or worsen Keep next interval checkup Cont. chronic meds as prescribed Chronic conditions are stable Discussed natural and expected course of this diagnosis and need to alert the office if symptoms do not follow expected course or if any worsens Not available 05/22/2024 21:46:12 Reason for Referral None Reported. Results Created Date Observation Date Name Description Value Unit Range Abnormal Flag Note LastModifiedBy Organization Detail LastModifiedTime 11/17/19 24 11/18/2023 COMP. METAB OLIC PANEL (14) glucose 139 mg/dL 70-99 above high normal Not Available [facility] ([facility]) [address] [place], [address], 11/18/2023 08:38:09 11/17/19 24 11/18/2023 COMP. METAB OLIC PANEL (14) BUN 10 mg/dL 6-20 Not Available [facility] ([facility]) [address] [place], [address], 11/18/2023 08:38:09 11/17/19 24 11/18/2023 COMP. METAB OLIC PANEL (14) creatinine 0.93 mg/dL 0.76-1 .27 Not Available [facility] ([facility]) [address] [place], [address], 11/18/2023 08:38:09 11/17/19 24 11/18/2023 COMP. METAB OLIC PANEL (14) eGFR 111 mL/mi n/1.7 3 >59 Not Available [facility] ([facility]) [address] [place], [address], 11/18/2023 08:38:09 11/17/19 24 11/18/2023 COMP. METAB OLIC PANEL (14) BUN/creatini ne ratio 11 9-20 Not Available [facility]) [address] [place], [address], 11/18/2023 08:38:09 11/17/19 24 11/18/2023 COMP. METAB OLIC PANEL (14) sodium 141 mmol/ L 134-14 4 Not Available [facility] ([facility]) [address] [place], [address], 11/18/2023 08:38:09 11/17/19 24 11/18/2023 COMP. METAB OLIC PANEL (14) potassium 4.0 mmol/ L 3.5-5. 2 Not Available [facility] ([facility]) [address] [place], [address], 11/18/2023 08:38:09 11/17/19 24 11/18/2023 COMP. METAB OLIC PANEL (14) chloride 102 mmol/ L 96-106 Not Available [facility] ([facility] [address] [facility] [place], [address], 11/18/2023 08:38:09 11/17/19 24 11/18/2023 COMP. METAB OLIC PANEL (14) carbon dioxide, total 20 mmol/ L 20-29 Not Available [facility] ([facility]) [address] [place], [address], 11/18/2023 08:38:09 11/17/19 24 11/18/2023 COMP. METAB OLIC PANEL (14) calcium 10.0 mg/dL 8.7-10 .2 Not Available [facility] ([facility] [address] [facility] [place], [address], 11/18/2023 08:38:09 11/17/19 24 11/18/2023 COMP. METAB OLIC PANEL (14) protein, total 7.8 g/dL 6.0-8. 5 Not Available [facility] ([facility]) [address] [facility] [place], [address], 11/18/2023 08:38:09 11/17/19 24 11/18/2023 COMP. METAB OLIC PANEL (14) albumin 4.6 g/dL 4.1-5. 1 Not Available [facility] ([facility]) [address] [facility] [place], [address], 11/18/2023 08:38:09 11/17/19 24 11/18/2023 COMP. METAB OLIC PANEL (14) globulin, total 3.2 g/dL 1.5-4. 5 Not Available [facility] ([facility]) [address] [facility] [place], [address], 11/18/2023 08:38:09 11/17/19 24 11/18/2023 COMP. METAB OLIC PANEL (14) A/G ratio 1.4 1.2-2. 2 Not Available [facility] ([facility]) [address] [facility] [place], [address], 11/18/2023 08:38:09 11/17/19 24 11/18/2023 COMP. METAB OLIC PANEL (14) bilirubin, total 0.6 mg/dL 0.0-1. 2 Not Available [facility] ([facility]) [address] [facility] [place], [address], 11/18/2023 08:38:09 11/17/19 24 11/18/2023 COMP. METAB OLIC PANEL (14) alkaline phosphatase 97 IU/L 44-121 Not Available [facility] [address] [facility] [place], [address], 11/18/2023 08:38:09 11/17/19 24 11/18/2023 COMP. METAB OLIC PANEL (14) AST (SGOT) 74 IU/L 0-40 above high normal Not Available [facility] ([facility]) [address] [facility] [place], [address], 11/18/2023 08:38:09 11/17/19 24 11/18/2023 COMP. METAB OLIC PANEL (14) ALT (SGPT) 94 IU/L 0-44 above high normal Not Available [facility] ([facility]) [address] [place], [address], 11/18/2023 08:38:09 11/17/19 24 11/18/2023 LIPID PANEL cholesterol, total 187 mg/dL 100-19 9 Not Available [facility] ([facility]) [address] [place], [address], 11/18/2023 08:38:10 11/17/19 24 11/18/2023 LIPID PANEL triglyceride s 245 mg/dL 0-149 above high normal Not Available [facility] ([facility]) [address] [place], [address], 11/18/2023 08:38:10 11/17/19 24 11/18/2023 LIPID PANEL HDL cholesterol 44 mg/dL >39 Not Available [facility]) [address] [place], [address], 11/18/2023 08:38:10 11/17/19 24 11/18/2023 LIPID PANEL VLDL cholesterol zara 42 mg/dL 5-40 above high normal Not Available [facility] ([facility]) [address] [place], [address], 11/18/2023 08:38:10 11/17/19 24 11/18/2023 LIPID PANEL LDL chol calc ([facility]) 101 mg/dL 0-99 above high normal Not Available [facility] (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) [address] [place], [address], 11/18/2023 08:38:10 11/17/19 24 11/18/2023 HCV ANTIB JAMES RFX TO QUANT PCR HCV Ab Non Reacti ve non reacti ve Not Available [facility] ([facility]) [address] [facility], [place], [address], 11/18/2023 08:38:10 11/17/19 24 11/18/2023 HCV ANTIB JAMES RFX TO QUANT PCR interpretati on: Commen t Not infec candice with HCV unles s early or acute infec tion is suspe cted (whic h may be delay ed in an immun ocomp romis ed indiv idual ), or other evide nce exist s to indic ate HCV infec tion. Not Available [facility] ([facility]) [address] [facility], [place], [address], 11/18/2023 08:38:10 11/17/19 24 11/18/2023 HEMOG LOBIN A1C hemoglobin A1C 6.0 % 4.8-5. 6 above high normal Predi abete s: 5.7 - 6.4 Diabe lucas: >6.4 Glyce ross contr ol for adult s with diabe lucas: <7.0 Not Available [facility] ([facility]) [address] [facility], [place], [address], 11/18/2023 08:38:11 11/17/1911/18/2023 VITAM IN D, 25-HY DROXY vitamin D, 25-hydroxy 53.6 NG/mL 30.0-1 00.0 Vitam in D defic iency has been defin ed by the Insti tute of Medic ine and an Endoc rine Socie ty pract ice guide line as a level of serum 25-OH vitam in D less than 20 ng/mL (1,2) . The Endoc rine Socie ty went on to furth er defin e vitam in D insuf ficie ncy as a level betwe en 21 and 29 ng/mL (2). 1. IOM (Inst itute of Medic ine). 2010. Dieta ry refer ence erik es for calci um and D. Lorri neri [place]: The Natio nal [employer] m[employer] . 2. Zahira foster MF, Isidoro ey [place], Bisch off-F errar i TRUONG, et al. Evalu ation , treat ment, and preve ntion of vitam in D defic iency : an Endoc rine Socie ty clini zara pract ice guide line. JCEM. 2010; 96(7) :1911 -30. Not Available [facility] ([facility]) [address] [place], [address], 11/18/2023 08:38:12 11/17/19 24 11/18/2023 TSH RFX ON ABNOR MAL TO FREE T4 TSH 0.433 uIU/m L 0.450- 4.500 below low normal Not Available [facility] ([facility]) [address] [place], [address], 11/18/2023 08:38:13 11/17/19 24 11/18/2023 TSH RFX ON ABNOR MAL TO FREE T4 T4,free (direct) 1.01 NG/dL 0.82-1 .77 Not Available [facility] ([facility]) [address] [place], [address], 11/18/2023 08:38:13 11/17/19 24 11/18/2023 ALBUM IN/CR EAT RATIO , RANDO M UR creatinine, urine 422.7 mg/dL not estab. Not Available [facility] ([facility]) [address] [place], [address], 11/18/2023 08:38:16 11/17/19 24 11/18/2023 ALBUM IN/CR EAT RATIO , RANDO M UR albumin, urine 15.9 ug/mL not estab. Not Available [facility] ([facility]) [address] [place], [address], 11/18/2023 08:38:16 11/17/19 24 11/18/2023 ALBUM IN/CR EAT RATIO , RANDO M UR alb/creat ratio 4 mg/g_ creat 0-29 Aysha l: 0 - 29 Moder ately incre ased: 30 - 300 Sever ricardo incre ased: >300 Not Available [facility] ([facility]) [address], [place], [address], 11/18/2023 08:38:16 11/22/19 24 11/22/2023 gluco se, finge rstic k, blood Blood Glucose: mg/dl 103 Not Available [place] [address] [facility] [address] [place], [address], 11/22/2023 08:07:13 11/22/19 24 11/22/2023 gluco se, finge rstic k, blood Reference Range (60-100) abnorm al Not Available [address] [place], [address], 11/22/2023 08:07:13 01/31/20 24 01/31/2024 rapid strep group A, throa t Strep negati ve Not Available [address] [place], [address], 01/31/2024 16:14:31 01/31/20 24 01/31/2024 rapid strep group A, throa t Culture No Not Available [address] [place], [address], 01/31/2024 16:14:31 01/31/20 24 01/31/2024 rapid SARS CoV + SARS CoV 2 Ag, QL IA, respi rator y speci men SARS CoV antigen Negati ve Not Available [address] [place], [address], 01/31/2024 15:51:32 05/22/20 24 05/22/2024 rapid strep group A, throa t Strep negati ve Not Available [address] [place], [address], 05/22/2024 17:57:48 05/22/20 24 05/22/2024 rapid strep group A, throa t Culture No Not Available [address] [place], [address], 05/22/2024 17:57:48 05/22/20 24 05/22/2024 rapid SARS CoV + SARS CoV 2 Ag, QL IA, respi rator y speci men SARS CoV antigen Negati ve Not Available [address] [place], [address], 05/22/2024 17:57:47 05/22/20 24 05/22/2024 rapid flu (A+B) Flu negati ve Not Available [address] [place], [address], 05/22/2024 17:57:48 05/22/20 24 05/22/2024 rapid flu (A+B) Type Both A & B Not Available [address] [place], [address], 05/22/2024 17:57:48 06/10/20 24 06/10/2024 XR, chest , 2 view No observ ation record ed. [place] [address], [place], [address], 06/10/2024 16:55:48 06/11/20 24 06/10/2024 imagi ng/di agnos tic resul t No observ ation record ed. [address], [place], [address], 06/11/2024 16:26:22 Result Notes None recorded. Problems Name Problem SNOMED Code Status Onset Date Resolution Date Notes Provider Name and Address Organization Details Recorded Time Sher cisse toby 29926249 Active 2020 Jodie Sheppard null, [place] - [facility] 1 16:33:28 Suspecte d COVID-19 029172234 Completed 11/04/2020 Removal Reason: Problem added by user [email or web address] from the COVID-19 watch flag Tonyajonas Ch null, [place] - [facility] 1 11:13:30 Fatigue 12677702 Active 2022 Eusebia Ben, STUDENT FINANCE SPECIALIST [address], [place], [address] , [place] - [facility] 3 08:28:23 Vitamin D deficien cy 56780600 Active 2022 Eusebia Contreras, STUDENT FINANCE SPECIALIST [address], [place], [address] , [place] - [facility] 3 11:08:40 Influenz a caused by Influenz a A virus 838949225 Active 2023 Jam Rand PA-C [address], [place], [address] , [place] - [facility] 4 15:14:26 Prediabe lucas 270249057 Active 2023 Antonio Waddell DO [address], [place], [address] , [place] - [facility] 4 14:21:09 Mixed hyperlip idemia 623553015 Active 2023 Antonio Waddell DO [address], [place], [address] , [place] [facility] 4 14:21:22 Liver enzymes level above referenc e range 122631210 Active 2023 Antonio Waddell DO [address], [place], [address] , [place] [facility] 4 14:22:05 Depressi ve disorder 44346728 Active 2023 Antonio Waddell DO [address], [place], [address] , [place] - [facility] 4 13:31:29 Nausea and vomiting 26238530 Active 2023 Jam Rand PA-C [address], [place], [address] , [place] [facility] 4 16:20:50 Cough 05072243 Active 2023 RONDA GarveyC [address], [place], [address] , [place] [facility] 4 11:56:40 Atypical pneumoni a 305850076 Active 2023 Jam Rand PA-C [address], [place], [address] , [place] [facility] 4 11:57:42 Obesity 154695252 Active 2023 Jam Rand PA-C [address], [place], [address] , [place] - [facility] 4 18:48:32 Viral gastroen teritis 055428524 Active 2023 Jam Rand PA-C [address], [place], [address] , [place] - [facility] 4 17:57:16 Problem Notes None recorded. Procedures Surgical History Date Name Laterality Status Provider Name and Address Organization Details Recorded Time 3 Knee Surgery completed Joy Merlos [place] - [facility] 01/31/2024 15:46:12 Knee Surgery completed Delaney Woodall [place] - [facility] 11/17/2023 13:13:56 procedure on skin completed Delaney Woodall [place] - [facility] 11/17/2023 13:14:33 Imaging Results Imaging Date Name Status [facility] Details LastModified Time 06/10/2024 XR, chest, 2 view completed [address], [place], [address], 06/10/2024 16:55:48 06/10/2024 imaging/diag nostic result active [address], [place], [address], 06/11/2024 16:26:22 Procedure Notes None recorded. Medical Equipment None [...] 15 5:47PM;U ser: [email or web address]; Est. Completi on: 04/01/20 14 Not Available [...] Disconti nued on: 06/08/20 15 5:47PM;U ser: [email or web address]; Est. Completi on: 02/09/20 15 Not Available [...] Available Vitals Date Recorded Body height Body temperature Body mass index (BMI) Body weight Heart rate Oxygen saturation Oxygen saturation in Arterial blood by Pulse oximetry Respiratory rate Systolic blood pressure Diastolic blood pressure Provider Name and Address Organization Details Last Updated DateTime 4 182.88 cm 97.5 [degF] 34.1 kg/m2 192400. 38 g 84 /min 98 % 98 % 18 /min 132 mm[Hg] 86 mm[Hg] Delaney Woodall [place] - [facility] 4 08:02:51 Date Recorded Body height Oxygen saturation Oxygen saturation in Arterial blood by Pulse oximetry Heart rate Body mass index (BMI) Body weight Respiratory rate Systolic blood pressure Diastolic blood pressure Provider Name and Address Organization Details Last Updated DateTime 4 182.88 cm 99 % 99 % 66 /min 33.8 kg/m2 947217. 9 g 16 /min 124 mm[Hg] 70 mm[Hg] Delaney Woodall [place] - [facility] 4 13:46:45 Date Recorded Body height Body mass index (BMI) Body weight Body temperature Heart rate Oxygen saturation Oxygen saturation in Arterial blood by Pulse oximetry Systolic blood pressure Diastolic blood pressure Provider Name and Address Organization Details Last Updated DateTime 4 182.88 cm 34.2 kg/m2 767254. 28 g 97.9 [degF] 90 /min 98 % 98 % 160 mm[Hg] 94 mm[Hg] Joy Merlos [place] - [facility] 4 15:51:07 Date Recorded Body height Body mass index (BMI) Body weight Heart rate Oxygen saturation Oxygen saturation in Arterial blood by Pulse oximetry Systolic blood pressure Diastolic blood pressure Provider Name and Address Organization Details Last Updated DateTime 4 182.88 cm 34.3 kg/m2 737811. 87 g 88 /min 98 % 98 % 130 mm[Hg] 88 mm[Hg] Joy Merlos [facility] 4 11:28:05 Date Recorded Body height Body mass index (BMI) Body weight Heart rate Oxygen saturation Oxygen saturation in Arterial blood by Pulse oximetry Body temperature Systolic blood pressure Diastolic blood pressure Provider Name and Address Organization Details Last Updated DateTime 4 182.88 cm 35 kg/m2 575202. 23 g 90 /min 98 % 98 % 98.9 [degF] 160 mm[Hg] 98 mm[Hg] Joy Merlos [facility] 4 17:20:25 Social History Question Answer Notes LastModified by Organizat ion Details LastModified Time Tobacco Smoking Status Never Smoker Jodie horvath [facility] 07/20/2020 16:33:41 What Is Your Level Of Alcohol Consumption? Occasional Information not available 05/24/2021 How Many Times Per Week Do You Consume Alcohol? 1-2 Times Per Week Information not available 11/22/2023 What Is Your Level Of Caffeine Consumption? Moderate Information not available 05/24/2021 How Much Tobacco Do You Chew? 1/day [email or web address] Information not available 11/22/2023 Do You Or Have You Ever Used E-cigarettes Or Vape? Never Used Electronic Cigarettes Information not available 10/16/2020 What Was The Date Of Your Most Recent Tobacco Screening? 12/15/2023 Information not available 12/15/2023 What Is Your [...] Cessation Counseling Provided? 11/22/2023 Not A Smoker [email or web address] Information not available 11/22/2023 How Many Years [...] Details LastModified Time Unspecified Relation Heart disease [email or web address] Not available 2023 15:46:11 Medical History Condition Response Hypertension Y Immunizations Vaccine Type Date Status Provider Name and Address Organization Details Recorded Time Influenza, split virus, quadrivalent, preservative 07/07/2022 cancelled Eusebia Contreras, STUDENT FINANCE SPECIALIST [address], [place], [address], [place] - [facility] 07/07/2022 15:36:08 Influenza, split virus, quadrivalent, preservative 09/19/2022 cancelled Eusebia Contreras, STUDENT FINANCE SPECIALIST [address], [place], [address], [place] - [facility] 09/19/2022 09:23:05 Hep B, [...] Diagnosis/Indication Diagnosis SNOMED-CT Code Diagnosis ICD10 Code [id number] Pam Anne [facility], [facility]–[address] [place] [address] 07/20/2020 16:14:03 07/20/2020 17:14:00 Viral screening 036601983 Z11.52 [id number] Briseida Mal[address] [place] [address] 10/16/2020 09:41:59 10/16/2020 10:23:40 Essential hypertension 29206405 I10 Viral screening 54927681 4 Z11.52 [id number] Briseida Ly [address] [place] [address] 11/06/2020 14:09:08 11/06/2020 15:40:40 Essential hypertension 10620342 I10 [id number] Ivy Chung [address] [address] 12/02/2020 13:38:15 12/02/2020 14:14:35 Essential hypertension 34404525 I10 Body mass index 30+ - obesity 819458295 Z68.31 [id number] Briseida [address] [place] [address] 05/24/2021 15:44:09 05/24/2021 16:30:31 Essential hypertension 07154838 I10 [id number] Eusebia Contreras[address] [place] [address] 10/29/2021 15:50:49 10/29/2021 16:45:40 Essential hypertension 63324085 I10 Sweating 096399505 R61 [id number] Eusebia Contreras [address] [place] [address] 12/27/2021 13:17:29 12/27/2021 13:40:51 Essential hypertension 17839439 I10 Body mass index 30+ - obesity 325673109 Z68.31 Obesity 519775491 E66.3 [id number] Ivy Chung [address] [address] 04/26/2022 14:43:34 04/26/2022 16:07:14 Viral syndrome 243135554 B34.9 [id number] Eusebia Contreras [address] [place] [address] 07/07/2022 15:16:35 07/07/2022 15:50:16 Essential hypertension 76301857 I10 Body mass index 30+ - obesity 933343989 Z68.33 Obesity 893623915 E66.9 Influenza vaccination declined 346253421 Z28.21 [id number] Eusebia Contreras [address] [place] [address] 09/05/2022 15:19:12 09/05/2022 16:12:13 Body mass index 30+ - obesity 206309776 Z68.33 Obesity 227704615 E66.9 Essential hypertension 01766422 I10 Nicotine dependence 5629 4008 F17.200 Viral screening 21182421 4 Z11.59 Exposure t o SARS-CoV-2 335734139 Z20.039 [id number] Eusebiasena Contreras[address] [place] [address] 09/19/2022 08:02:26 09/19/2022 09:06:43 General examination of patient 869463043 Z00.00 Hyperlipid emia screening 956278747 Z13.220 Endocrine/ metabolic screening 071759785 Z13.228 Exercises education, guidance, and counseling 483551064 Z71.82 Dietary ma nagement surveillance 279850164 Z71.3 Influenza vaccination declined 257394991 Z28.21 Body mass index 30+ - obesity 677085713 Z68.33 Fatigue 99261909 R53.83 [id number] Eusebiasena Contreras [address] [place] [address] 2022 10:34:47 2022 11:45:49 Body mass index 30+ - obesity 514580107 Z68.33 Obesity 688164600 E66.9 Long-term current use of drug therapy 864728391 Z79.899 Essential hypertension 13482209 I10 Vitamin D deficiency 347 99162 E55.9 [id number] [address] [place] [address] 12/15/2022 16:34:48 12/15/2022 16:56:57 Obesity 757355321 E66.9 Long-term drug therapy 672517703 Z79.899 Body mass index 30+ - obesity 454619312 Z68.33 Nicotine dependence 5629 4008 F17.200 Essential hypertension 21092029 I10 [id number] Eusebiasena Contreras[address] [place] [address] 01/12/2023 16:58:05 01/13/2023 08:17:00 Essential hypertension 15794112 I10 Body mass index 30+ - obesity 080387118 Z68.33 Obesity 533929615 E66.9 Long-term current use of drug therapy [id number] Z79.899 Vitamin D deficiency 347 62447 E55.9 [id number] Eusebiasena Contreras[address] [place] [address] 02/09/2023 16:33:03 02/09/2023 17:11:02 Body mass index 30+ - obesity 221950988 Z68.33 Obesity 325993616 E66.9 Essential hypertension 00857714 I10 [id number] Eusebiasena Contreras[address] [place] [address] 02/23/2023 16:28:14 02/24/2023 13:55:54 Essential hypertension 83668645 I10 Body mass index 30+ - obesity 690046436 Z68.34 Obesity 024837637 E66.9 [id number] Eusebiasena Contreras[address] [place] [address] 04/21/2023 15:39:45 04/21/2023 17:06:40 Body mass index 30+ - obesity 148498885 Z68.34 Obesity 940191190 E66.9 Essential hypertension 30525672 I10 [id number] Jam Rand PA-C [address] [place] [address] 08/30/2023 14:40:25 08/30/2023 15:14:20 Pharyngitis 544365382 J02.9 Influenza caused by Influenza A virus 853205804 J09.X2 [id number] Antonio [address] [place] 4 11/17/2023 12:58:03 11/17/2023 13:51:23 Essential hypertension 60792524 I10 Prediabetes 079152081 R7 3.03 Mixed hyperlipidemia 267 788493 E78.2 Liver enzy mes level above reference range 933480197 R74.01 Vitamin D deficiency 347 97994 E55.9 Body mass index 30+ - obesity 688692204 Z68.34 Obesity 289072256 E66.9 Depressive disorder 3548 9007 F32.A [id number] Antonio [address] [place] [place] [address] 4 11/22/2023 07:46:57 11/22/2023 08:25:37 Adult health examination 489965499 Z00.00 Essential hypertension 09831254 I10 Prediabetes 378107169 R7 3.03 Liver enzy mes level above reference range 832500573 R74.01 [id number] Antonio [address] [place] [address] 12/15/2023 13:38:12 12/15/2023 13:53:08 Essential hypertension 44727438 I10 Depressive disorder 3548 9007 F32.A Body mass index 30+ - obesity 092840819 Z68.33 Obesity 931823971 E66.9 [id number] Jam Rand PA-C [address] [place] [address] 01/31/2024 15:40:52 01/31/2024 16:20:10 Nausea and vomiting 82398959 R11.2 [id number] Jam Rand PA-C [facility] [address] [facility] [place] [address] 03/28/2024 11:17:20 03/28/2024 11:18:51 Cough 54991346 R05.9 Atypical pneumonia 78731 6009 J18.9 Body mass index 30+ - obesity 153012969 Z68.34 Obesity 178174490 E66.9 [id number] Jam Rand PA-C [address] [place] [address] 05/22/2024 16:48:38 06/11/2024 07:20:58 Viral gastroenteritis 642735867 A08.4 Nausea and vomiting 1693 1999 R11.2 Health Concerns Section Related Observation LastModified by Organization Detai ls LastModified Time None Recorded Concern Status LastModified by Organization Details LastModified Time None Recorded Advance Directives Directive None Recorded Payers Encounter Date Sequence Insurance Name Policy Number Policy Scott Covered Member ID Scott Member ID Guarantor Name 11/22/2023 2 [place] [id number] Noel Karan [id number] Noel Russo 11/22/2023 1 [facility] ([place]) Noel Nelia Karan [id number] Noel Karan 12/15/2023 1 [facility] ([facility]) Noel D Karan [id number] Noel Karan 01/31/2024 1 [facility] ([facility]) Noel D Karan [id number] Noel Karan 03/28/2024 1 [facility] ([facility] Noel D Karan [id number] Noel Karan 05/22/2024 1 [facility] ([facility]) Noel Nelia Karan [id number] Noel Cariasas Notes Date Note Type Note Provider Name and Address Organization Details Recorded Time 11/22/2023 text/html 33-year-old male seen in the office today for a work physical.Patient presents today needing completion of a physical form for his employer. Patient has no concerns or complaints today. Antonio Waddell DO [address], [place], [address], [place] - [facility] 12/13/2023 16:41:34 12/15/2023 text/html 33-year-old male seen in the office today for acute complaint of fatigue and increased sleepiness.Patient states that he has noticed that he is wanting to sleep all the time and constantly feels tired. Patient states that after work he comes home and by 7 or 8:00 he is ready to go to bed. Patient thinks it may be related to his medications either for his blood pressure or his mood. Antonio Waddell DO [address], [place], [address], [facility] - [facility] 12/15/2023 14:14:30 01/31/2024 text/html Patient presents to office with complaints of vomiting x1 day. Patient reports nausea began this morning prior to leaving for work, stayed home, has slept most of today. Patient states symptoms have resolved. Patient unsure of fever, has not measured. reports 5 episodes of emesis; nonbloody, nonbilious. A few episodes of diarrhea without blood or concerning symptoms (sharp abdonimal pain, frothiness, mucousy appearance, spiking fevers). Denies drinking from any contaminated water sources (ponds, mo, or shallow wells) or eating contaminated food (undercooked meets or solomon). Reports had been taking semaglutide he was purchasing over the counter, has recently stopped. Reports occasional pain in bilateral breasts without mass or discharge. Pt denies chest pain, SOA, difficulty eating or drinking, changes in bathroom habits, syncope/presyncope , or any other concerns. Jam Rand PA-C [address], [place], [address], [facility] - [facility] 01/31/2024 18:16:59 03/28/2024 text/html Patient presents to office with [...] or any other concerns. Jam Rand PA-C [address], [place], [address], [place] - [facility] 03/28/2024 18:50:24 05/22/2024 text/html Patient presents to office with complaints of nausea/vomiting x1 day. Patient also complains of diarrhea. Patient denies fever, is afebrile this visit. Patient reports has not had blood pressure medication x3 days, states forgot to call in . episodes of emesis; nonbloody, nonbilious. episodes of diarrhea without blood or concerning symptoms (sharp abdonimal pain, frothiness, mucousy appearance, spiking fevers). Denies drinking from any contaminated water sources (ponds, mo, or shallow wells) or eating contaminated food (undercooked meets or solomon).R???eports children in household with similar symptoms. No other symptoms or concerns reported..sujatha Rand PA-C [address], [place], [address], [place] [facility] 05/22/2024 21:46:16
--- OUTSIDE RECORDS SUMMARY | 2024-06-11 22:22 | XMS_ITS | Continuity of Care Document ---
Author Organization [facility] Address [address] [place], [place] [address] [place] [address] Assessment No assessment recorded. Plan of Treatment Reminders Order Date Submit Date Provider Last Modified By Organization Details Last Modified Time Details Appointments ULTRASOUN D 30 2023 08:30A M U/S M[facility] Not available Not available Not available Lab rapid SARS CoV + SARS CoV 2 Ag, QL IA, respirato ry specimen 2023 [facility], [address] [place], [address], 05/22/2024 18:17:11 rapid strep group A, throat 2023 [facility], [address] [place] [address] Rd[address] [place], [address], 05/22/2024 18:17:02 rapid flu (A+B) 2023 [facility], [address] [place] [address] Rd[address] [place], [address], 05/22/2024 18:16:51 Referral None recorded. Procedures None recorded. Surgeries None recorded. Imaging None recorded. Medication Orders ondansetr on 8 mg disintegr ating tablet 2023 [facility], [address], [place], [address], 05/22/2024 17:57:36 Patient TargetsNo targets recorded. Patient Instructions Encounter Date Encounter Id Patient Instructions Last Modified By Organization Details Last Modified Time 05/22/2024 [id number] nausea and vomiting: care instructions [email or web address] Not available 05/22/2024 17:57:50 All questions answered and pt/guardian satisfied with treatment plan. Call with changes RTC or ED if symptoms change or worsen Keep next interval checkup Cont. chronic meds as prescribed Chronic conditions are stable Discussed natural and expected course of this diagnosis and need to alert the office if symptoms do not follow expected course or if any worsens [email or web address] Not available 05/22/2024 21:46:12 Reason for Referral None Reported. Results Created Date Observation Date Name Description Value Unit Range Abnormal Flag Note LastModifiedBy Organization Detail LastModifiedTime 05/22/20 24 05/22/2024 rapid strep group A, throa t Strep negati ve Not Available [address] [place], [address], 05/22/2024 17:57:48 05/22/20 24 05/22/2024 rapid strep group A, throa t Culture No Not Available [address] [place], [address], 05/22/2024 17:57:48 05/22/20 24 05/22/2024 rapid SARS CoV + SARS CoV 2 Ag, QL IA, respi rator y speci men SARS CoV antigen Negati ve Not Available [address] [place], [address], 05/22/2024 17:57:47 05/22/20 24 05/22/2024 rapid flu (A+B) Flu negati ve Not Available [address] [place], [address], 05/22/2024 17:57:48 05/22/20 24 05/22/2024 rapid flu (A+B) Type Both A & B Not Available Replaced By [facility] [address] [place], [address], 05/22/2024 17:57:48 06/10/20 24 06/10/2024 XR, chest , 2 view No observ ation record ed. [address], [place], [address], 06/10/2024 16:55:48 06/11/20 24 06/10/2024 imagi ng/di agnos tic resul t No observ ation record ed. [address], [place], [address], 06/11/2024 16:26:22 Result Notes None recorded. Problems Name Problem SNOMED Code Status Onset Date Resolution Date Notes Provider Name and Address Organization Details Recorded Time Sher garcia [employer] toby 31640456 Active 2020 Crystal Valarie null, [place] - [facility] 1 16:33:28 Suspecte d COVID-19 741072836 Completed 11/04/2020 Removal Reason: Problem added by user [email or web address] from the COVID-19 watch flag Tonya horvath, [place] - [facility] 1 11:13:30 Fatigue 78543191 Active 2022 Eusebia Contreras APRN [address], [place], [address] , [place] - [facility] 3 08:28:23 Vitamin D deficien cy 38637589 Active 2022 Eusebia Contreras APRN [address], [place], [address] , [place] - [facility] 3 11:08:40 Influenz a caused by Influenz a A virus 692071112 Active 2023 Jam Rand PA-C [address], [place], [address] , [place] - [facility] 4 15:14:26 Prediabe lucas 305416925 Active 2023 Antonio Waddell DO [address], [place], [address] , [place] - [facility] 4 14:21:09 Mixed hyperlip idemia 061777311 Active 2023 Antonio Waddell DO [address], [place], [address] , [place] [facility] 4 14:21:22 Liver enzymes level above referenc e range 320972135 Active 2023 Antonio Waddell DO [address], [place], [address] , [place] [facility] 4 14:22:05 Depressi ve disorder 25037977 Active 2023 Antonio Waddell DO [address], [place], [address] , [place] [facility] 4 13:31:29 Nausea and vomiting 54786446 Active 2023 Jam Rand PA-C [address], [place], [address] , [place] [facility] 4 16:20:50 Cough 14158960 Active 2023 Jam Rand PA-C [address], [place], [address] , [place] [facility] 4 11:56:40 Atypical pneumoni a 021426039 Active 2023 Jam Rand PA-C [address], [place], [address] , [place] [facility] 4 11:57:42 Obesity 422772332 Active 2023 Jam Rand PA-C [address], [place], [address] , [place] [facility] 4 18:48:32 Viral gastroen teritis 827630021 Active 2023 Jam Rand PA-C [address], [place], [address] , [place] [facility] 4 17:57:16 Problem Notes None recorded. Procedures Surgical History Date Name Laterality Status Provider Name and Address Organization Details Recorded Time 3 Knee Surgery completed Joy Merlos [place] - [facility] 01/31/2024 15:46:12 Knee Surgery completed Delaney Woodall [place] - [facility] 11/17/2023 13:13:56 procedure on skin completed Delaney Woodall [place] - [facility] 11/17/2023 13:14:33 Imaging Results None [...] 15 5:47PM;U ser: [email or web address]; Est. Completi on: 02/09/20 15 Not Available [...] Updated DateTime 4 182.88 cm 35 kg/m2 906820. 23 g 90 /min 98 % 98 % 98.9 [degF] 160 mm[Hg] 98 mm[Hg] Joy Merlos [place] - [facility] 4 17:20:25 Social History Question Answer Notes LastModified by Organizat ion Details LastModified Time Tobacco Smoking Status Never Smoker Jodie horvath [place] - [facility] 07/20/2020 16:33:41 What Is Your Level Of Alcohol Consumption? Occasional Information not available 05/24/2021 How Many Times Per Week Do You Consume Alcohol? 1-2 Times Per Week [email or web address] Information not available 11/22/2023 What Is Your Level Of Caffeine Consumption? Moderate Information not available 05/24/2021 How Much Tobacco Do You Chew? 1/day [email or web address] Information not available 11/22/2023 Do You Or Have You Ever Used E-cigarettes Or Vape? Never Used Electronic Cigarettes Information not available 10/16/2020 What Was The Date Of Your Most Recent Tobacco Screening? 12/15/2023 [email or web address] Information not available 12/15/2023 What Is Your [...] Cessation Counseling Provided? 11/22/2023 Not A Smoker [email or web address] Information not available 11/22/2023 How Many Years [...] Details LastModified Time Unspecified Relation Heart disease [email or web address] Not available 2023 15:46:11 Medical History Condition Response Hypertension Y Immunizations Vaccine Type Date Status Provider Name and Address Organization Details Recorded Time Influenza, split virus, quadrivalent, preservative 07/07/2022 cancelled Eusebia Contreras APRN [address], [place], [address], [place] [facility] 07/07/2022 15:36:08 Influenza, split virus, quadrivalent, preservative 09/19/2022 cancelled Eusebia Contreras APRN [address], [place], [address], [facility] - [facility] 09/19/2022 09:23:05 Hep B, adolescent or pediatric 04/05/2001 completed Jodie horvath [place] - [facility] 07/07/2022 15:27:57 Hep B, adolescent or pediatric 05/30/2001 completed Jodie horvath, [place] - [facility] 07/07/2022 15:27:57 Hep B, adolescent or pediatric 11/02/2001 completed Jodie horvath, [place] - [facility] 07/07/2022 15:27:57 Past Encounters Encounter ID Performer Location Encounter Start Date Encounter Closed Date Diagnosis/Indication Diagnosis SNOMED-CT Code Diagnosis ICD10 Code [id number] Jam Rand PA-C Replaced By [facility] [address] [place] [address] 05/22/2024 16:48:38 06/11/2024 07:20:58 Viral gastroenteritis 689054984 A08.4 Nausea and vomiting 1693 2000 R11.2 Health Concerns Section Related Observation LastModified by Organization Detai ls LastModified Time None Recorded Concern Status LastModified by Organization Details LastModified Time None Recorded Payers Encounter Date Sequence Insurance Name Policy Number Policy Scott Covered Member ID Scott Member ID Guarantor Name 05/22/[address] [facility] Noel Russo [id number] Noel Russo Notes Date Note Type Note Provider Name and Address Organization Details Recorded Time 05/22/2024 text/html Patient presents to office with [...] similar symptoms. No other symptoms or concerns reported..v Jam Rand PA-C [address], [place], [address], [place] [facility] 05/22/2024 21:46:16
== END 2024-06-10 17:30 | disposition home or self-care (01) ==
PROVIDERS: Physician Assistant; Student in an Organized Health Care Education/Training Program; Emergency Provider Emergency Medicine; PCP Nurse Practitioner
DX: R06.02 Shortness of breath (principal); I10 Essential (primary) hypertension; R07.9 Chest pain, unspecified; R53.83 Other fatigue; R20.2 Paresthesia of skin
CPT/HCPCS: 71045; 80053; 82550; 83735; 83880; 84484; 85025; 85378; 85610; 86803; 87389; 93005; 99284

== ENCOUNTER 2024-07-18 11:44 | Outpatient (CLI) | payer OTHER, SELFPAY ==
--- NOTE | 2024-07-18 11:45 | CT_ITS ---
APPROVED REPORT [employer]: CLINICAL INDICATION Chest Pain TECHNIQUE Image Acquisition: A 128 slice MDCT scanner ([employer] View) was used for data acquisition. A noncontrast coronary calcium scan was performed. A CT attenuation threshold of 130 Hounsfield units (HU) was used for the detection of calcium in contiguous voxels of 1 sq mm in area to be counted as individual lesions. Bolus tracking in the ascending aorta with a threshold of 180 HU was performed. Immediately afterwards, ECG synchronized cardiac CT was then performed from the cardiac base to apex using retrospective gating with ECG tube current modulation. A total of 85 mL of Isovue 370 mg/mL contrast medium was administered at 5 mL/sec followed by a saline flush using a biphasic injection protocol. A tube voltage of 120 KVp was used. The patient received the following medications prior to the cardiac CT. 150 mg of oral metoprolol 15 mg of oral ivabradine 0.8 mg of sublingual nitroglycerin The average heart rate at the time of acquisition was 56 bpm and regular. Image Reconstruction Transaxial images were reconstructed at 0.67 mm slide thickness. Data was reviewed interactively on an advanced workstation capable of 2 and 3-dimensional displays in all conventional reconstruction formats, including multiplanar reformations, maximum intensity projections, curved multiplanar reformations, and volume rendered reconstructions. When applicable, selected routine images describing the relevant coronary anatomy and pathology were saved and sent to PACS. Complications None Technical Quality Overall image quality was good. Coronary artery opacification was adequate. Total DLP (Dose-Length Product) is 1110.6 mGy-cm. The reported value represents the total of one or more individual components during the CT acquisition of this date and at this time, and as such, the same value may appear in more than one CT report depending on the interpreting/reporting physicians. COMPARISON None FINDINGS CT Coronary Calcium Scoring LMA (Left Main Artery) = 0 LAD (Left Anterior Descending) = 0 LCX (Left Coronary Circumflex) = 0 RCA (Right Coronary Artery) = 0 Total Calcium Score = 0 using the AJ-130 method. The interpretation of the calcium heart score is based on the following continuum*: 0 = no calcified plaque detected (risk of coronary artery disease is very low ??? less than 5%) 1-10 = calcium detected in extremely minimal levels (risk of coronary diseases is still low ??? less than 10%) 11-100 = mild levels of plaque detected with certainty (mild or minimal narrowing of heart arteries is likely) 101-400 = definite,at least moderate levels of plaque detected (relatively high risk of a heart attack within 3-5 years) >401-999 = extensive levels of plaque detected (high risk of heart attack, high levels of vascular disease are present, high likelihood of at least one significant coronary narrowing) *The calcium heart score quantifies the burden of coronary calcification/plaque in the coronary arteries. The calcium heart score is not able to evaluate the presence or burden of non-calcified (i.e. soft) plaque. There is no identifiable calcification in the aortic valve, mitral annulus or mitral valve, pericardium, or myocardium. Coronary CT Angiography The coronary arterial system is right dominant. Quantitative Stenosis Grading: Left Main (LM): The left main originates normally from the left sinus of Valsalva. The LM triifurcates into the left anterior descending artery, ramus intermedius, and left circumflex artery. The LM is patent with no evidence of atherosclerosis. Left Anterior Descending (LAD) and Diagonal Branches: The LAD gives off 3 diagonal branch(es). The LAD and its branches are patent with no evidence of atherosclerosis. There is no evidence of LAD-myocardial bridge. Ramus-intermedius (RI): The RI is patent. Left Circumflex (LCX) and Obtuse Marginals (OM): The LCX gives off 1 Obtuse Marginal (OM) branch(es). The LCX and its branches are patent with no evidence of atherosclerosis. Right Coronary Artery (RCA): The RCA originates normally from the right sinus of Valsalva. The RCA gives off a posterior descending artery (PDA) and posterolateral (PL) branches. The RCA and its branches are patent with no evidence of atherosclerosis. Non-Coronary Cardiac Findings: Analysis of the left ventricular (LV) structure and function was performed after 3-D reconstruction of the LV from axial images, with user-corrected automatic contouring for assessment of LV volumes and user-defined reconstruction from oblique planes for measurement of 3-D cardiac structure and function. -The left ventricle systolic function is normal. -There is no left atrial appendage filling defect. Two right pulmonary veins and two left pulmonary veins drain normally into the left atrium. -No pericardial thickening or calcification. -Central and branch pulmonary arteries in the [id number] are unremarkable. -Thoracic aorta within the visualized thoracic aortic-branches in the [id number] is unremarkable. Extracardiac Structures No significant extra-cardiac findings. Note, however, that this study is focused on the cardiac findings. IMPRESSION -No coronary calcification with an Agatston score = 0 using the AJ-130 method. -No evidence of significant flow-limiting atherosclerosis of the coronary arteries. -No evidence of coronary anomalies or myocardial bridges. -CAD-RADS 0. Management recommendations per ACC/AHA guidelines*, as clinically appropriate. *Recommendations: CAD RADS 0: Reassurance. Consider non-atherosclerotic causes of chest pain. CAD RADS 1: Consider non-atherosclerotic causes of chest pain. Consider preventive therapy and risk factor modification. CAD RADS 2: Consider non-atherosclerotic causes of chest pain. Consider preventive therapy and risk factor modification, particularly for patients with nonobstructive plaque in multiple segments. CAD RADS 3: Consider further functional testing. Consider symptom-guided anti-ischemic and preventive pharmacotherapy as well as risk factor modification per published guideline statements. CAD RADS 4A: Consider further functional testing or invasive coronary angiography with revascularization per published guideline statements. Consider symptom-guided anti-ischemic and preventive pharmacotherapy as well as risk factor modification per published guideline statements. CAD RADS 4B: Invasive coronary angiography recommended with revascularization per published guideline statements. Consider symptom-guided anti-ischemic and preventive pharmacotherapy as well as risk factor modification per published guideline statements. CAD RADS 5: Consider invasive angiography and/or viability assessment with revascularization per published guideline statements. Consider symptom-guided anti-ischemic and preventive pharmacotherapy as well as risk factor modification per published guideline statements. CRITICAL RESULT None COMMUNICATION Per this written report The coronary and cardiac findings of this CCTA were reviewed, reported, and signed by Deniz Barrera MD (Life Assurance Representative) Conclusion Electronically signed by : Yajaira Barrera MD 07/18/2024 15:07:42
[2024-07-18 12:05] VITALS: BMI 37.3
[2024-07-18 12:11] VITALS: BP 143/78; PULSE 85; RESP 18; TEMP 36.8; O2SAT 97
[2024-07-18] MEDS: IVABRADINE HCL 7.5MG TABLET PO (12:15)
[2024-07-18] MEDS: METOPROLOL TARTRATE 50MG TABLET PO ×2 (12:15→13:00)
[2024-07-18 12:31] LABS: Chloride 99 mmol/L (98-107); Potassium 3.8 mmoL/L (3.5-5.1); Sodium 133 mmol/L (136-145)
[2024-07-18 12:34] LABS: Anion Gap 12.8 mEq/L (5-15); Blood Urea Nitrogen 8 mg/dl (9-20); Calcium 9.6 mg/dl (8.4-10.2); Carbon Dioxide 25 mmol/L (22.0-30.0); Creatinine Clearance Estimated 232 mL/min (50-200); Estimated Glomerular Filt Rate 111 ml/min (>60); GFR (African American) 135 ML/MIN (>60); Glucose 139 mg/dl (74-100)
[2024-07-18 13:00] VITALS: BP 140/72; PULSE 74; RESP 18; O2SAT 97
[2024-07-18 13:30] VITALS: BP 131/87; PULSE 66; RESP 16; O2SAT 98
[2024-07-18] MEDS: NITROGLYCERIN 0.4MG SL TABLET SL (13:30)
[2024-07-18 13:35] VITALS: BP 136/88; PULSE 65; RESP 16; O2SAT 98
[2024-07-18 13:40] VITALS: BP 133/68; PULSE 68; RESP 16; O2SAT 97
[2024-07-18] MEDS: IOPAMIDOL-370 (76%);100ML BOTTLE 85 ML IV (13:41)
[2024-07-18] MEDS: 0.9 % SODIUM CHLORIDE 50 ML VIAL IV (13:41)
[2024-07-18] MEDS: SODIUM CHLORIDE 0.9% 10ML SYR (RAD ONLY) 10 ML IV (13:41)
== END 2024-07-18 13:46 | disposition home or self-care (01) ==
PROVIDERS: PCP Physician Assistant; Visit Provider Physician Assistant
DX: R07.9 Chest pain, unspecified (principal); R94.31 Abnormal electrocardiogram [ECG] [EKG]; R06.02 Shortness of breath
CPT/HCPCS: 75574; 80048; Q9967

== ENCOUNTER 2024-10-15 16:18 | Outpatient (CLI) | payer OTHER, SELFPAY ==
[2024-10-15 20:02] LABS: HIV Combo NEGATIVE (Negative)
[2024-10-15 20:09] LABS: Hepatitis C Ab Qual. W/ RFX NEGATIVE (Negative)
[2024-10-15 23:42] LABS: RPR W/RFX Titers Nonreactive (Nonreactive)
[2024-10-16 18:18] LABS: Chlamydia trachomatis Negative (Negative); Neisseria gonorrhoeae Negative (Negative); Trichomonas vaginalis Negative (Negative)
[2024-10-19 06:38] LABS: HSV-1 DNA Negative (Negative); HSV-2 DNA Negative (Negative)
== END 2024-10-15 23:59 | disposition home or self-care (01) ==
LOC: LAB.DROPOF 10-16 12:38
PROVIDERS: PCP Nurse Practitioner Family; Visit Provider Nurse Practitioner Family
DX: Z20.2 Contact with and (suspected) exposure to infections with a predominantly sexual mode of transmission (principal)
CPT/HCPCS: 86592; 86803; 87389; 87491; 87529; 87591; 87661

== ENCOUNTER 2024-10-24 14:20 | Emergency (ER) | payer OTHER, SELFPAY ==
[2024-10-24 14:30] VITALS: BP 168/103; PULSE 117; RESP 16; TEMP 36.8; O2SAT 97; BMI 33.9
[2024-10-24] MEDS: METHOCARBAMOL 500MG TABLET 1500 MG PO (14:51)
[2024-10-24] MEDS: DEXAMETHASONE 4MG TABLET 10 MG PO (14:51)
[2024-10-24] MEDS: LIDOCAINE 5% TRANSDERMAL PATCH 1 EACH TD (14:52)
[2024-10-24] MEDS: KETOROLAC 30MG/ML VIAL 30 MG IM (14:54)
[2024-10-24 15:00] VITALS: BP 157/95; PULSE 113; O2SAT 96
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
[2024-10-24 15:30] VITALS: BP 135/94; PULSE 104; O2SAT 97
[2024-10-24 16:00] VITALS: BP 134/94; PULSE 108; O2SAT 97
[2024-10-24 16:40] VITALS: BP 134/94; PULSE 108; RESP 16; TEMP 36.8; O2SAT 97
== END 2024-10-24 16:42 | disposition home or self-care (01) ==
PROVIDERS: Emergency Provider Emergency Medicine; PCP Nurse Practitioner Family
DX: M54.50 Low back pain, unspecified (principal)
CPT/HCPCS: 96372; 99283; J1885; J8540

== ENCOUNTER 2024-11-27 14:25 | Outpatient (CLI) | payer OTHER, SELFPAY ==
[2024-11-27 14:15] LABS: Hemoglobin A1C 6.5 % (4.0-6.0)
[2024-11-27 14:30] LABS: Chol/HDL Ratio 4.4 (1-3.5); Cholesterol 209 mg/dl (140-200); HDL Cholesterol 47 mg/dl (40-60); Triglycerides 236 mg/dl (30-150); VLDL Cholesterol 47 mg/dL (0-40)
[2024-11-27 18:02] LABS: Direct LDL Cholesterol 139.05 mg/dL (100-129)
--- NOTE | 2024-12-11 10:49 | PC.NURSE ---
Spoke with patient today in regards of HST. He needs to hold off at this time due to no insurance.
== END 2024-11-27 23:59 | disposition home or self-care (01) ==
LOC: LAB.DROPOF 14:26
PROVIDERS: PCP Internal Medicine; Visit Provider Internal Medicine
DX: Z13.1 Encounter for screening for diabetes mellitus (principal); Z13.220 Encounter for screening for lipoid disorders
CPT/HCPCS: 80061; 83036